=== PATIENT | male | born 1940 | race Asian ===

== ENCOUNTER 2017-04-05 17:30 | Inpatient (IN) | payer MEDICARE, MEDICAID ==
[~2017-04-05] VITALS: Ht 167.6 cm; Wt 48.7 kg
[2017-04-05 20:25] LABS: Basophils # (auto) 0 uL; Basophils % (auto) 0.5 % (0.0-2.0); CONDITION Y; DEFINITIVE SEE PRINTOUT; Eosinophils # (auto) 0.1 uL; Eosinophils % (auto) 2.2 % (0.0-7.0); Hematocrit 38.5 % (41.0-53.0); Hemoglobin 11.9 g/dL (13.5-17.5); Lymphocytes # (auto) 2.4 uL; Lymphocytes % (auto) 37.4 % (10.0-50.0); Mean Corpuscular Hemoglobin 20.9 pg (28.0-32.0); Mean Corpuscular Hgb Conc. 30.9 g/dL (32.0-36.0); Mean Corpuscular Volume 67.6 fL (80.0-100.0); Mean Platelet Volume 8.3 fL (7.4-10.4); Monocytes # (auto) 0.6 uL; Monocytes % (auto) 9.2 % (0.0-12.0); Neutrophils # (auto) 3.3 uL; Neutrophils % (auto) 50.7 % (37.0-80.0); Platelet Count (auto) 247 10^3/uL (140-450); Red Cell Distribution Width 18.1 % (11.6-16.0); White Blood Cell 6.6 10^3/uL (4.4-10.8)
[2017-04-05 20:38] LABS: Albumin 3.7 g/dL (3.4-5.0); BUN/Creatinine Ratio 17.6; Calcium 8.7 mg/dL (8.5-10.1); Potassium 3.7 mmol/L (3.5-5.1)
[2017-04-05 20:40] LABS: INR 0.94 (0.9-1.15); Prothrombin Time 10.2 sec (9.37-12.3)
[2017-04-05 20:41] LABS: Bilirubin, Total 0.5 mg/dL (0.2-1.0); Total Protein 7.7 g/dL (6.4-8.2)
[2017-04-06] MEDS ORDERED: PIPERACILLIN-TAZOB 3.375GM 100 ML IV ONE (00:15)
[2017-04-06 00:24] LABS: Urine Bilirubin Negative (Negative); Urine Color PINK (Yellow); Urine Glucose Normal (Normal); Urine Ketone Negative (Negative); Urine Mucus MODERATE (None Seen); Urine Nitrite Negative (Negative); Urine RBC 550 /hpf (0 - 3); Urine Urobilinogen Normal (Negative)
[2017-04-06 00:25] LABS: Urine Blood 3+ /uL (Negative)
[2017-04-06] MEDS ORDERED: SODIUM CHLORIDE 0.9% 1,000 ML IV SCH (06:08)
[2017-04-06] MEDS ORDERED: ONDANSETRON HCL 4 MG/2 ML VIAL IV PRN (06:15)
[2017-04-06] MEDS ORDERED: ALBUTEROL SULF 2.5 MG/0.5ML(0.5%) NEB SOLN NEB PRN (06:15)
[2017-04-06] MEDS ORDERED: MORPHINE SULF INJ 2 MG/ML SYRINGE 1ML IV PRN (06:15)
[2017-04-06] MEDS: PIPERACILLIN-TAZOB 3.375GM 100 ML IV SCH ×3 (06:45→19:04)
[2017-04-06] MEDS: FAMOTIDINE (10MG/ML) 2ML VL IV SCH ×2 (06:45→19:04)
[2017-04-06 09:48] VITALS: BP 166/108
[2017-04-06] MEDS ORDERED: LISINOPRIL 5 MG TAB PO SCH (10:00)
[2017-04-06] MEDS ORDERED: ENOXAPARIN SOD 40 MG/0.4 ML SYRINGE SC SCH (10:00)
[2017-04-06] MEDS ORDERED: CLOPIDOGREL BISULFATE 75 MG TAB PO SCH (10:00)
[2017-04-06] MEDS: NEOMYCIN-POLYMY-DEXAMETH 0.1% OPTH(EYE) SUSP 5ML LEFTEYE SCH ×4 (10:00→22:10)
[2017-04-06] MEDS ORDERED: ENOXAPARIN SOD 30 MG/0.3 ML SYRINGE SC SCH (10:00)
[2017-04-06] MEDS ORDERED: APIXABAN 2.5 MG TAB PO SCH (10:00)
[2017-04-06] MEDS: PANTOPRAZOLE SODIUM 40 MG/10 ML VIAL IV SCH (10:28)
[2017-04-06] MEDS: BENAZEPRIL HCL 10 MG TAB PO SCH (10:28)
[2017-04-06] MEDS: amLODIPine BESYLATE 5 MG TAB PO SCH (10:29)
[2017-04-06] MEDS ORDERED: MORPHINE SULFATE 4 MG/ML SYRG IV PRN (14:10)
[2017-04-06 17:00] VITALS: BP 120/76
[2017-04-06] MEDS: TAMSULOSIN HYDROCHLORIDE 0.4 MG CAP PO SCH (19:04)
[2017-04-06 20:00] VITALS: BP 130/78
[2017-04-06] MEDS: DOXAZOSIN MESYL 2 MG TAB PO SCH (21:49)
[2017-04-06] MEDS: ATORVASTATIN 20 MG TAB PO SCH (21:49)
[2017-04-06 22:00] VITALS: BP 130/78
[2017-04-07] MEDS: NEOMYCIN-POLYMY-DEXAMETH 0.1% OPTH(EYE) SUSP 5ML LEFTEYE SCH ×6 (02:00→22:00)
[2017-04-07 05:30] VITALS: BP 145/63
[2017-04-07] MEDS: PIPERACILLIN-TAZOB 3.375GM 100 ML IV SCH ×4 (05:58→17:37)
[2017-04-07] MEDS: FAMOTIDINE (10MG/ML) 2ML VL IV SCH ×2 (05:58→17:37)
[2017-04-07] MEDS: SODIUM CHLORIDE 0.9% 1,000 ML IV SCH ×2 (05:58→22:43)
[2017-04-07 06:55] LABS: Basophils # (auto) 0 uL; Basophils % (auto) 0.3 % (0.0-2.0); CONDITION Y; DEFINITIVE SEE PRINTOUT; Eosinophils # (auto) 0.3 uL; Eosinophils % (auto) 4.2 % (0.0-7.0); Hematocrit 38.2 % (41.0-53.0); Hemoglobin 11.7 g/dL (13.5-17.5); Lymphocytes # (auto) 1.8 uL; Mean Corpuscular Hemoglobin 20.8 pg (28.0-32.0); Mean Corpuscular Hgb Conc. 30.6 g/dL (32.0-36.0); Mean Platelet Volume 8.3 fL (7.4-10.4); Monocytes # (auto) 0.6 uL; Monocytes % (auto) 9.3 % (0.0-12.0); Neutrophils # (auto) 3.5 uL; Neutrophils % (auto) 57.2 % (37.0-80.0); Platelet Count (auto) 233 10^3/uL (140-450); Red Cell Distribution Width 18.5 % (11.6-16.0); White Blood Cell 6.1 10^3/uL (4.4-10.8)
[2017-04-07 07:23] VITALS: BP 117/73
[2017-04-07 07:38] LABS: Albumin 3.2 g/dL (3.4-5.0); BUN/Creatinine Ratio 17.5; Bilirubin, Total 0.7 mg/dL (0.2-1.0); Calcium 9.1 mg/dL (8.5-10.1); Potassium 3.6 mmol/L (3.5-5.1); Total Protein 6.9 g/dL (6.4-8.2)
[2017-04-07] MEDS: amLODIPine BESYLATE 5 MG TAB PO SCH (10:00)
[2017-04-07] MEDS: PANTOPRAZOLE SODIUM 40 MG/10 ML VIAL IV SCH (10:31)
[2017-04-07] MEDS: BENAZEPRIL HCL 10 MG TAB PO SCH (10:32)
[2017-04-07] MEDS: ATENOLOL 25 MG TAB PO SCH (10:33)
[2017-04-07 13:08] VITALS: BP 109/50
[2017-04-07] MEDS ORDERED: IOHEXOL 300 MG/ML 100ML BOTTLE IJ ONE (16:16)
[2017-04-07 16:45] VITALS: BP 130/79
[2017-04-07] MEDS: SPIRONOLACTONE 25 MG TAB PO SCH (17:37)
[2017-04-07] MEDS: TAMSULOSIN HYDROCHLORIDE 0.4 MG CAP PO SCH (17:37)
[2017-04-07 19:30] VITALS: BP 130/78
[2017-04-07 22:00] VITALS: BP 112/66
[2017-04-07] MEDS: ATORVASTATIN 20 MG TAB PO SCH (22:00)
[2017-04-07] MEDS: CARVEDILOL 3.125 MG TAB PO SCH (22:00)
[2017-04-07] MEDS: DOXAZOSIN MESYL 2 MG TAB PO SCH (22:00)
[2017-04-07] MEDS ORDERED: TEMAZEPAM 15 MG CAP PO ONE (23:15)
[2017-04-08] MEDS: PIPERACILLIN-TAZOB 3.375GM 100 ML IV SCH ×5 (00:02→23:51)
[2017-04-08] MEDS: NEOMYCIN-POLYMY-DEXAMETH 0.1% OPTH(EYE) SUSP 5ML LEFTEYE SCH ×6 (02:00→22:00)
[2017-04-08 05:00] VITALS: BP 125/65
[2017-04-08] MEDS: SPIRONOLACTONE 25 MG TAB PO SCH ×2 (06:10→17:28)
[2017-04-08] MEDS: FAMOTIDINE (10MG/ML) 2ML VL IV SCH (06:10)
[2017-04-08 09:00] VITALS: BP 128/78
[2017-04-08] MEDS: PANTOPRAZOLE SODIUM 40 MG/10 ML VIAL IV SCH (10:37)
[2017-04-08] MEDS: ATENOLOL 25 MG TAB PO SCH (10:38)
[2017-04-08] MEDS: CARVEDILOL 3.125 MG TAB PO SCH ×2 (10:38→22:02)
[2017-04-08] MEDS: BENAZEPRIL HCL 10 MG TAB PO SCH (10:39)
[2017-04-08] MEDS ORDERED: IOHEXOL 300 MG/ML 100ML BOTTLE IJ ONE (11:42)
[2017-04-08 13:00] VITALS: BP 144/77
[2017-04-08 17:00] VITALS: BP 116/63
[2017-04-08] MEDS: TAMSULOSIN HYDROCHLORIDE 0.4 MG CAP PO SCH (17:27)
[2017-04-08 22:00] VITALS: BP 126/61
[2017-04-08] MEDS: ATORVASTATIN 20 MG TAB PO SCH (22:00)
[2017-04-08] MEDS: DOXAZOSIN MESYL 2 MG TAB PO SCH (22:01)
[2017-04-09] MEDS: NEOMYCIN-POLYMY-DEXAMETH 0.1% OPTH(EYE) SUSP 5ML LEFTEYE SCH ×6 (01:16→22:08)
[2017-04-09] MEDS: SODIUM CHLORIDE 0.9% 1,000 ML IV SCH (05:22)
[2017-04-09 05:33] LABS: BUN/Creatinine Ratio 18.6; Calcium 8.4 mg/dL (8.5-10.1); Potassium 3.7 mmol/L (3.5-5.1)
[2017-04-09] MEDS: PIPERACILLIN-TAZOB 3.375GM 100 ML IV SCH ×3 (05:34→18:42)
[2017-04-09] MEDS: SPIRONOLACTONE 25 MG TAB PO SCH ×2 (05:34→18:07)
[2017-04-09 08:00] VITALS: BP 106/56
[2017-04-09 09:00] VITALS: BP 106/56
[2017-04-09] MEDS: PANTOPRAZOLE SODIUM 40 MG/10 ML VIAL IV SCH (10:29)
[2017-04-09] MEDS: CARVEDILOL 3.125 MG TAB PO SCH ×2 (10:30→22:08)
[2017-04-09] MEDS: ATENOLOL 25 MG TAB PO SCH (10:30)
[2017-04-09] MEDS: BENAZEPRIL HCL 10 MG TAB PO SCH (11:51)
[2017-04-09] MEDS ORDERED: LEVOFLOXACIN 500MG 100 ML IV ONE (13:15)
[2017-04-09] MEDS ORDERED: LINEZOLID 600MG/300ML 300 ML IV ONE (13:30)
[2017-04-09 13:39] VITALS: BP 127/70
[2017-04-09] MEDS: TAMSULOSIN HYDROCHLORIDE 0.4 MG CAP PO SCH (18:07)
[2017-04-09] MEDS: BOOST PLUS 8 ounce PO SCH (18:42)
[2017-04-09 21:59] VITALS: BP 149/90
[2017-04-09] MEDS: LINEZOLID 600MG/300ML 300 ML IV SCH (22:07)
[2017-04-09] MEDS: ATORVASTATIN 20 MG TAB PO SCH (22:08)
[2017-04-09] MEDS: DOXAZOSIN MESYL 2 MG TAB PO SCH (22:08)
[2017-04-10] MEDS: PIPERACILLIN-TAZOB 3.375GM 100 ML IV SCH ×4 (00:01→18:19)
[2017-04-10] MEDS: NEOMYCIN-POLYMY-DEXAMETH 0.1% OPTH(EYE) SUSP 5ML LEFTEYE SCH ×6 (01:50→22:12)
[2017-04-10] MEDS: SODIUM CHLORIDE 0.9% 1,000 ML IV SCH ×2 (02:08→22:13)
[2017-04-10 05:13] VITALS: BP 113/71
[2017-04-10] MEDS: SPIRONOLACTONE 25 MG TAB PO SCH ×2 (06:21→18:17)
[2017-04-10 08:00] VITALS: BP 113/71
[2017-04-10] MEDS: BOOST PLUS 8 ounce PO SCH ×3 (08:00→18:20)
[2017-04-10 08:38] VITALS: BP 136/71
[2017-04-10] MEDS: LINEZOLID 600MG/300ML 300 ML IV SCH ×2 (09:59→22:12)
[2017-04-10] MEDS: CARVEDILOL 3.125 MG TAB PO SCH ×2 (10:00→22:12)
[2017-04-10] MEDS: ATENOLOL 25 MG TAB PO SCH (10:00)
[2017-04-10] MEDS: BENAZEPRIL HCL 10 MG TAB PO SCH (10:11)
[2017-04-10] MEDS: PANTOPRAZOLE SODIUM 40 MG/10 ML VIAL IV SCH (10:13)
[2017-04-10 12:36] VITALS: BP 135/77
[2017-04-10] MEDS: TAMSULOSIN HYDROCHLORIDE 0.4 MG CAP PO SCH (18:17)
[2017-04-10 21:53] VITALS: BP 133/76
[2017-04-10] MEDS: DOXAZOSIN MESYL 2 MG TAB PO SCH (22:12)
[2017-04-10] MEDS: ATORVASTATIN 20 MG TAB PO SCH (22:13)
[2017-04-11] MEDS: PIPERACILLIN-TAZOB 3.375GM 100 ML IV SCH ×5 (00:03→23:59)
[2017-04-11] MEDS: NEOMYCIN-POLYMY-DEXAMETH 0.1% OPTH(EYE) SUSP 5ML LEFTEYE SCH ×5 (01:33→21:48)
[2017-04-11 05:31] VITALS: BP 125/73
[2017-04-11] MEDS: SPIRONOLACTONE 25 MG TAB PO SCH ×2 (05:41→18:01)
[2017-04-11 05:54] LABS: Basophils # (auto) 0 uL; Basophils % (auto) 0.3 % (0.0-2.0); CONDITION Y; DEFINITIVE SEE PRINTOUT; Eosinophils # (auto) 0.2 uL; Eosinophils % (auto) 3.1 % (0.0-7.0); Hematocrit 37.4 % (41.0-53.0); Hemoglobin 11.5 g/dL (13.5-17.5); Lymphocytes # (auto) 2.4 uL; Lymphocytes % (auto) 33.9 % (10.0-50.0); Mean Corpuscular Hemoglobin 21.1 pg (28.0-32.0); Mean Corpuscular Hgb Conc. 30.9 g/dL (32.0-36.0); Mean Corpuscular Volume 68.3 fL (80.0-100.0); Mean Platelet Volume 8.9 fL (7.4-10.4); Monocytes # (auto) 0.8 uL; Monocytes % (auto) 10.9 % (0.0-12.0); Neutrophils # (auto) 3.7 uL; Neutrophils % (auto) 51.8 % (37.0-80.0); Platelet Count (auto) 229 10^3/uL (140-450); Red Cell Distribution Width 17.8 % (11.6-16.0); White Blood Cell 7.1 10^3/uL (4.4-10.8)
[2017-04-11 06:12] LABS: Albumin 2.9 g/dL (3.4-5.0); BUN/Creatinine Ratio 10.6; Bilirubin, Total 0.7 mg/dL (0.2-1.0); Calcium 8.5 mg/dL (8.5-10.1); Potassium 3.5 mmol/L (3.5-5.1); Total Protein 6.4 g/dL (6.4-8.2)
[2017-04-11] MEDS: BOOST PLUS 8 ounce PO SCH ×3 (08:00→18:00)
[2017-04-11 09:17] VITALS: BP 137/63
[2017-04-11 13:26] VITALS: BP 132/70
[2017-04-11] MEDS: PANTOPRAZOLE SODIUM 40 MG/10 ML VIAL IV SCH (13:57)
[2017-04-11] MEDS: LINEZOLID 600MG/300ML 300 ML IV SCH ×2 (13:57→21:48)
[2017-04-11] MEDS: CARVEDILOL 3.125 MG TAB PO SCH ×4 (14:02→18:04)
[2017-04-11] MEDS: BENAZEPRIL HCL 10 MG TAB PO SCH (14:03)
[2017-04-11] MEDS: ATENOLOL 25 MG TAB PO SCH (14:04)
[2017-04-11 17:34] VITALS: BP 125/70
[2017-04-11] MEDS: TAMSULOSIN HYDROCHLORIDE 0.4 MG CAP PO SCH (18:00)
[2017-04-11] MEDS: SODIUM CHLORIDE 0.9% 1,000 ML IV SCH (18:08)
[2017-04-11] MEDS: ATORVASTATIN 20 MG TAB PO SCH (21:48)
[2017-04-11 21:49] VITALS: BP 112/60
[2017-04-11] MEDS: DOXAZOSIN MESYL 2 MG TAB PO SCH (21:49)
[2017-04-12] MEDS: NEOMYCIN-POLYMY-DEXAMETH 0.1% OPTH(EYE) SUSP 5ML LEFTEYE SCH ×6 (01:54→21:50)
[2017-04-12 04:51] VITALS: BP 120/72
[2017-04-12] MEDS: SPIRONOLACTONE 25 MG TAB PO SCH ×2 (05:35→17:57)
[2017-04-12] MEDS: PIPERACILLIN-TAZOB 3.375GM 100 ML IV SCH ×4 (05:35→23:53)
[2017-04-12] MEDS: BOOST PLUS 8 ounce PO SCH ×3 (07:49→17:57)
[2017-04-12 09:00] VITALS: BP 133/81
[2017-04-12] MEDS: LINEZOLID 600MG/300ML 300 ML IV SCH ×2 (10:27→21:50)
[2017-04-12] MEDS: PANTOPRAZOLE SODIUM 40 MG/10 ML VIAL IV SCH (10:27)
[2017-04-12] MEDS: BENAZEPRIL HCL 10 MG TAB PO SCH (10:28)
[2017-04-12] MEDS: ATENOLOL 25 MG TAB PO SCH (10:29)
[2017-04-12 13:38] VITALS: BP 129/86
[2017-04-12 14:13] VITALS: BP 129/86
[2017-04-12] MEDS: SODIUM CHLORIDE 0.9% 1,000 ML IV SCH (15:23)
[2017-04-12 17:23] VITALS: BP 122/69
[2017-04-12] MEDS: TAMSULOSIN HYDROCHLORIDE 0.4 MG CAP PO SCH (17:57)
[2017-04-12] MEDS: ATORVASTATIN 20 MG TAB PO SCH (21:50)
[2017-04-12] MEDS: CARVEDILOL 3.125 MG TAB PO SCH (21:51)
[2017-04-12] MEDS: DOXAZOSIN MESYL 2 MG TAB PO SCH (21:51)
[2017-04-12 22:00] VITALS: BP 110/68
[2017-04-13] MEDS: NEOMYCIN-POLYMY-DEXAMETH 0.1% OPTH(EYE) SUSP 5ML LEFTEYE SCH ×5 (01:48→18:00)
[2017-04-13] MEDS: PIPERACILLIN-TAZOB 3.375GM 100 ML IV SCH ×3 (05:43→18:00)
[2017-04-13] MEDS: SPIRONOLACTONE 25 MG TAB PO SCH ×2 (05:55→18:00)
[2017-04-13 05:56] VITALS: BP 127/80
[2017-04-13] MEDS: BOOST PLUS 8 ounce PO SCH ×3 (07:41→18:00)
[2017-04-13 09:00] VITALS: BP 130/87
[2017-04-13] MEDS: PANTOPRAZOLE SODIUM 40 MG/10 ML VIAL IV SCH (11:04)
[2017-04-13] MEDS: LINEZOLID 600MG/300ML 300 ML IV SCH (11:04)
[2017-04-13] MEDS: ATENOLOL 25 MG TAB PO SCH (11:08)
[2017-04-13] MEDS: CARVEDILOL 3.125 MG TAB PO SCH ×2 (11:08→12:00)
[2017-04-13] MEDS: BENAZEPRIL HCL 10 MG TAB PO SCH (11:09)
[2017-04-13] MEDS: SODIUM CHLORIDE 0.9% 1,000 ML IV SCH (11:37)
[2017-04-13 13:00] VITALS: BP 124/63
[2017-04-13 17:00] VITALS: BP 120/76
[2017-04-13] MEDS ORDERED: TAM04C PO (17:40)
[2017-04-13] MEDS ORDERED: CAR3125T PO (17:40)
[2017-04-13] MEDS ORDERED: ATOR20TA50 PO (17:40)
[2017-04-13] MEDS: TAMSULOSIN HYDROCHLORIDE 0.4 MG CAP PO SCH (18:00)
[2017-04-13 18:53] VITALS: BP 120/76
== END 2017-04-13 19:25 | disposition home or self-care (01) | DRG 690 ==
LOC: ER 17:43 → OVERFLOW 17:44 → WEST WING 04-06 16:51 → TELE-WESTW 04-08 10:37 → WEST WING 04-09 17:30
PROVIDERS: ADMIT Family Medicine; ATTEND Internal Medicine
DX: N39.0 Urinary tract infection, site not specified (principal); E44.0 Moderate protein-calorie malnutrition; Z68.1 Body mass index [BMI] 19.9 or less, adult; I42.9 Cardiomyopathy, unspecified; B95.2 Enterococcus as the cause of diseases classified elsewhere; N40.1 Benign prostatic hyperplasia with lower urinary tract symptoms; R33.8 Other retention of urine; I50.9 Heart failure, unspecified; I11.0 Hypertensive heart disease with heart failure; E78.5 Hyperlipidemia, unspecified; F03.90 Unspecified dementia, unspecified severity, without behavioral disturbance, psychotic disturbance, mood disturbance, and anxiety; J44.9 Chronic obstructive pulmonary disease, unspecified; J98.4 Other disorders of lung; N32.0 Bladder-neck obstruction; Z16.21 Resistance to vancomycin; I70.0 Atherosclerosis of aorta; B96.5 Pseudomonas (aeruginosa) (mallei) (pseudomallei) as the cause of diseases classified elsewhere; I69.311 Memory deficit following cerebral infarction
CPT/HCPCS: 36415; 71010; 71260; 80048; 80053; 80061; 81001; 83735; 85025; 85610; 87040; 87086; 87088; 87186; 93005; 93306; 96365; 96366; C9113; J1956; J2543; J3490